=== PATIENT | female | born 1945 | race Caucasian/White ===

== ENCOUNTER → 2017-09-13 12:14 | Outpatient (CLI) | payer MEDICARE, SELFPAY ==
--- NOTE | 2017-09-13 12:18 | XR_ITS ---
XR elbow RT min 3V HISTORY: Radial head fracture, pain ITS.REASON: RT RADIAL HEAD FX ORDERING PHYSICIAN: David Huffman MD PATIENT AGE: 71 years COMPARISON: None FINDINGS: No previous exams are available for comparison. There is a faint radiolucency through the central aspect of the radial head consistent with a nondisplaced fracture. There is a positive anterior and posterior fat pad consistent with hemarthrosis. IMPRESSION: Nondisplaced radial head fracture with hemarthrosis
== END ==
PROVIDERS: PCP Family Medicine; Visit Provider Family Medicine
DX: S52.121A Displaced fracture of head of right radius, initial encounter for closed fracture (principal)
CPT/HCPCS: 73080

== ENCOUNTER → 2017-09-16 11:11 | Outpatient (CLI) | payer MEDICARE, SELFPAY ==
--- NOTE | 2017-09-16 11:14 | XR_ITS ---
XR elbow RT min 3V COMPARISON: Right elbow 09/13/2017 HISTORY: Follow-up radial head fracture TECHNIQUE: AP and lateral views FINDINGS: The posterior fat pad sign has resolved. The subtle nondisplaced radial head fracture is again noted. The olecranon fossa appears normal and the supracondylar humerus is normal. IMPRESSION: Stable radial head fracture, interval resolution of hemarthrosis
== END ==
PROVIDERS: PCP Family Medicine; Visit Provider Orthopaedic Surgery
DX: S42.401A Unspecified fracture of lower end of right humerus, initial encounter for closed fracture (principal)
CPT/HCPCS: 73080

== ENCOUNTER → 2017-09-24 08:55 | Outpatient (CLI) | payer MEDICARE, SELFPAY ==
--- NOTE | 2017-09-24 08:58 | XR_ITS ---
XR elbow RT min 3V COMPARISON: Right elbow 09/16/2017 HISTORY: Follow-up recent radial head fracture TECHNIQUE: AP lateral and oblique views FINDINGS: The subtle radial head fracture is again seen with a small step off in the cortex of the radial head. There has been resolution of the hemarthrosis seen on the original film of the 09/13/2017. The olecranon fossa and supracondylar humerus appears normal. IMPRESSION: Stable rather subtle radial head fracture
== END ==
PROVIDERS: PCP Family Medicine; Visit Provider Orthopaedic Surgery
DX: S52.121A Displaced fracture of head of right radius, initial encounter for closed fracture (principal)
CPT/HCPCS: 73080

== ENCOUNTER → 2017-10-03 08:41 | Outpatient (CLI) | payer MEDICARE, SELFPAY ==
--- NOTE | 2017-10-03 08:43 | XR_ITS ---
XR elbow RT min 3V HISTORY: Follow-up fracture ITS.REASON: RT radial head fracture ORDERING PHYSICIAN: Brady Castañeda MD PATIENT AGE: 71 years COMPARISON: 09/24/2017 FINDINGS: Previously noted radial head fracture is slightly more apparent consistent with bony resorption from the underlying fracture site. Displaced fat pad once again noted. A faint calcification is present along the anterior distal aspect of the humerus nonspecific IMPRESSION: Nondisplaced radial head fracture slightly more apparent likely related to bony resorption from hyperemia. Overall no significant change. Persistent hemarthrosis
== END ==
PROVIDERS: PCP Family Medicine; Visit Provider Orthopaedic Surgery
DX: S52.121A Displaced fracture of head of right radius, initial encounter for closed fracture (principal)
CPT/HCPCS: 73080

== ENCOUNTER 2017-10-29 13:00 | Outpatient (RCR) | payer MEDICARE, SELFPAY ==
--- NOTE | 2017-09-24 09:51 | HMH.OTOPEV ---
OT Inpatient Evaluation Rehab OT Outpatient Eval Start: 09/24/17 08:34 Freq: Status: Active Protocol: Document 09/24/17 08:35 TFRY (Rec: 09/24/17 09:02 TFRY [id number]) Electronically Signed By Helena Hardy, OT 09/24/17 08:35 Outpatient Therapy Subjective History Subjective History THIS IS A 71 YEAR OLD FEMALE RIGHT HANDED FEMALE REFERRED TO OCCUPATIONAL THERAPY PATIENT SUSTAINED A RIGHT EDWIN 1 RADIAL HEAD FX. PATIENT STATES SHE FELL ON 01/2018. SHE WENT TO ER AND THEN SAW DR. OROZCO ON September. Chief Complaint Pain Stiff Symptom Type Dull Symptoms Relieved By Rest/Positioning Symptoms Aggravated By Physical Activity Prior Functional Limitations None Current Functional Limitations Lifting Housework Dressing Recreation Activity Symptom Description Activity Dependent Level of pain today (0-10) 0 Pain scale - at its best (0-10) 0 Pain scale - at its worst (0-10) 3 Shoulder/Elbow Eval Shoulder Objective Measurements Elbow Objective Measurements Palpation Tenderness Elbow Palpation Finding Tenderness Elbow ROM Right decreased ROM elbow exam standard right pain with active ROM elbow exam standard right pain with passive ROM elbow exam right standard Elbow Extension Active Range of Motion ( 0 degrees) Elbow Extension Passive Range of Motion 0 (degrees) Elbow Flexion Active Range of Motion ( 130 degrees) Elbow Flexion Passive Range of Motion ( 142 degrees) Elbow Pronation of Forearm Range of WFL Motion (degrees) Elbow Supination of Forearm Range of 180 Motion (degrees) Elbow Supination of Forearm Range of WFL Motion (degrees) Elbow ROM Limitations Pain Elbow MMT Elbow/Forearm Strength Reason Not Orthopedic Precautions Measured OT Outpatient Assessment Impairments Problems/Impairments Impaired Range of Motion Impaired Strength Impaired Lifting Impaired Dressing Impaired Household Care Impaired Recreational Activities Subjective C/O Pain Prognosis Rehab Potential
== END 2017-10-29 13:01 | disposition home or self-care (01) ==
LOC: OT 13:00
PROVIDERS: Family Provider Family Medicine; PCP Family Medicine; Visit Provider Orthopaedic Surgery
DX: S52.121A Displaced fracture of head of right radius, initial encounter for closed fracture (principal)
CPT/HCPCS: 97014; 97110; 97140; 97165; G0283

== ENCOUNTER → 2017-11-05 09:16 | Outpatient (CLI) | payer MEDICARE, SELFPAY ==
--- NOTE | 2017-11-05 09:21 | XR_ITS ---
XR elbow RT min 3V HISTORY: Follow-up fracture ITS.REASON: RT Radial Head Fx ORDERING PHYSICIAN: Brady Castañeda MD PATIENT AGE: 71 years COMPARISON: 10/03/2017 FINDINGS: Mildly depressed radial head fracture is once again noted. Fracture line is still visible. Fracture has both a longitudinal and transverse component. Fracture lines are somewhat more visible than when compared to the previous exam. There is some sclerosis along the lateral aspect of the radial head. Developing avascular process is a consideration. IMPRESSION: Mildly depressed radial head fracture. The depression is slightly more apparent as are the fracture lines. There is some increased density along the lateral aspect of the radial head and may be related to overlap from the depressed fragment versus developing avascular necrosis
== END ==
PROVIDERS: PCP Family Medicine; Visit Provider Orthopaedic Surgery
DX: S52.121A Displaced fracture of head of right radius, initial encounter for closed fracture (principal)
CPT/HCPCS: 73080

== ENCOUNTER → 2018-02-17 09:02 | Outpatient (CLI) | payer MEDICARE, SELFPAY ==
[2018-02-18 09:08] LABS: Adenovirus F 40/41, stool Not Detected (NotDetected); Astrovirus Not Detected (NotDetected); Campylobacter Not Detected (NotDetected); Clostridium Difficile A/B, PCR Not Detected (NotDetected); Cryptosporidium Not Detected (NotDetected); Cyclospora Cayetanesis Not Detected (NotDetected); Entamoeba histolytica Not Detected (NotDetected); Enteroaggregative E coli Not Detected (NotDetected); Enteropathogenic E coli Not Detected (NotDetected); Enterotoxigenic E coli Not Detected (NotDetected); Giardia lamblia Not Detected (NotDetected); Norovirus Not Detected (NotDetected); Plesimonas Shigalloides, PCR Not Detected (NotDetected); Rotavirus A Not Detected (NotDetected); Salmonella, PCR Not Detected (NotDetected); Sapovirus Not Detected (NotDetected); Shiga-like toxin E coli Not Detected (NotDetected); Shigella Enterovasive E coli Not Detected (NotDetected); Vibrio Cholerae Not Detected (NotDetected); Vibrio, PCR Not Detected (NotDetected); Yersinia Entercolitica, PCR Not Detected (NotDetected)
[2018-02-18 09:46] LABS: Occult Blood,Stool Negative (Negative)
== END ==
PROVIDERS: Visit Provider Family Medicine
DX: R19.7 Diarrhea, unspecified (principal)
CPT/HCPCS: 82272; 87507; G0328

== ENCOUNTER → 2018-02-27 10:04 | Outpatient (CLI) | payer MEDICARE, SELFPAY ==
--- NOTE | 2018-02-27 10:07 | MM_ITS ---
MM Dig screening mamm BI w/CAD CAD Screening COMPARISON: Digital mammograms with CAD 02/02/2016 and 02/04/2017 INDICATION: There is no personal or family history of breast cancer TECHNIQUE: Standard CC and MLO images were obtained. R2 CAD reviewed. FINDINGS: Scattered fibroglandular densities are seen throughout both breasts. There are benign-appearing macrocalcifications right breast. There is no suspicious lesion and there are no suspicious microcalcifications. IMPRESSION: Fibrofatty parenchyma with no suspicious lesion seen BI-RADS Category: 2 Benign Finding(s) RECOMMENDED FOLLOW-UP: 1YR - 1 YEAR FOLLOW-UP (A letter has been sent to the patient regarding results of the study.)
== END ==
PROVIDERS: PCP Family Medicine; Visit Provider Family Medicine
DX: Z12.31 Encounter for screening mammogram for malignant neoplasm of breast (principal)
CPT/HCPCS: 77067

== ENCOUNTER → 2018-03-03 14:02 | Outpatient (POV) | payer MEDICARE, SELFPAY | PROVIDERS: Visit Provider Nurse Practitioner Acute Care | DX: Z00.00 Encounter for general adult medical examination without abnormal findings (principal) ==

== ENCOUNTER → 2018-07-21 09:16 | Outpatient (CLI) | payer MEDICARE, SELFPAY ==
--- NOTE | 2018-07-21 09:20 | XR_ITS ---
XR DEXA axial skeleton HISTORY: ITS.REASON: OSTEOPENIA ORDERING PHYSICIAN: David Huffman MD PATIENT AGE: 72 years COMPARISON: 07/02/2016 FINDINGS: The BMD measured at the AP Spine L1-L4 is 0.946 g/cm squared with a T score of -1.9. This is considered Osteopenic according to the World Health Organization criteria. Fracture risk is Moderate. Treatment is advised. Main hip density has a T score of -1.7. The hip density has increased by 1.6%. The lumbar spine density is not significant change. IMPRESSION: Osteopenia with marked fracture risk. Treatment is advised. Recommend follow-up exam in July 2020
== END ==
PROVIDERS: PCP Family Medicine; Visit Provider Family Medicine
DX: M85.89 Other specified disorders of bone density and structure, multiple sites (principal)
CPT/HCPCS: 77080

== ENCOUNTER 2019-03-03 13:22 | Outpatient (CLI) | payer MEDICARE, SELFPAY ==
--- NOTE | 2019-03-03 13:23 | MM_ITS ---
PROCEDURE: MM DIG SCREENING MAMM BI W/CAD Patient Age:73Y CLINICAL INDICATION: SCREENING 73-year-old, no hormones. No new complaints. Noncontributory family history COMPARISON: [facility] DIGITAL MAMM-SCREEN BILATERAL from 06/03/2012 [facility] DIG MAMM-BILATERAL ADD VIEWS from 06/26/2012 [facility] DIG MAMM-DX TASHA from 12/03/2012 [facility] DIG MAMM-SCREEN TASHA from 12/09/2013 [facility] DIG MAMM-SCREEN TASHA from 01/07/2015 [facility] DIG MAMM-SCREEN TASHA from 02/02/2016 [facility] DIG MAMM-SCREEN TASHA W/CAD from 02/04/2017 [facility] MM Dig screening mamm BI w/CAD from 02/27/2018 TECHNIQUE: Standard CC and MLO images were obtained. R2 CAD reviewed. FINDINGS: Moderate breast density mildly heterogeneous with mild asymmetry similar the to previous studies. No new dominant or suspicious mass. No new suspicious calcifications IMPRESSION: Stable bilateral Bilateral mammogram with no new areas of concern Bilateral follow-up 1 year recommended BI-RAD Category: 1 Negative FOLLOW-UP: 1YR 1 Year Follow-up (A letter has been sent to the patient regarding results of the study.) Dictated by: Wayne Shah MD 03/05/2019 22:10 Electronically signed by Wayne Shah MD in [place] 03/05/2019 22:10
[2019-03-03 14:25] VITALS: BP 171/77; PULSE 59; RESP 18; O2SAT 100
== END 2019-03-03 14:25 | disposition home or self-care (01) ==
LOC: INF 13:22
PROVIDERS: PCP Family Medicine; Visit Provider Family Medicine
DX: Z12.31 Encounter for screening mammogram for malignant neoplasm of breast (principal); M81.0 Age-related osteoporosis without current pathological fracture
CPT/HCPCS: 77067; 96372; J0897

== ENCOUNTER 2019-09-02 08:45 | Outpatient (CLI) | payer MEDICARE, SELFPAY ==
[2019-09-02 09:00] VITALS: BP 127/64; PULSE 63; RESP 18; TEMP 37.2
== END 2019-09-02 09:10 | disposition home or self-care (01) ==
LOC: INF 08:49
PROVIDERS: Visit Provider Family Medicine
DX: M81.0 Age-related osteoporosis without current pathological fracture (principal)
CPT/HCPCS: 96372; J0897

== ENCOUNTER → 2019-09-04 10:13 | Outpatient (CLI) | payer MEDICARE, SELFPAY ==
[2019-09-04 13:24] LABS: Coronavirus 19 IgG Antibody Negative (Negative); Coronavirus 19 IgM Antibody Negative (Negative)
== END ==
PROVIDERS: PCP Family Medicine; Visit Provider Internal Medicine Gastroenterology
DX: Z01.818 Encounter for other preprocedural examination (principal)
CPT/HCPCS: 36415; 86328

== ENCOUNTER 2019-09-07 08:29 | Day surgery (SDC) | payer MEDICARE, SELFPAY ==
[2019-09-01 09:43] VITALS: BMI 22.3
--- NOTE | 2019-09-02 10:46 | SUR.PREOP ---
09/02/2019 @ 6811--PHONE CALL MADE TO PATIENT. PATIENT UNDERSTANDS THAT LAB WORK AND COVID TESTING NEEDS TO BE COMPLETED @ 1000 ON 09/04/2019. PATIENT UNDERSTANDS IF LAB WORK AND COVID-19 TESTS ARE NOT COMPLETED BY 12PM ON THAT DATE, THE SURGERY SCHEDULED WILL BE CANCELLED AND RESCHEDULED FOR ANOTHER TIME.
[2019-09-07] VITALS (7 sets, daily range): BP systolic 94–158; BP diastolic 40–77; PULSE 57–64; RESP 12–18; TEMP 36.3–36.8; O2SAT 96–100
--- NOTE | 2019-09-07 08:57 | HMH.ANESCL ---
[facility] Anesthesia Checklist - Patient Identification Patient Identification: Arm Band - Structural Data Admitted From: Home Planned Operative Procedure/s: colonoscopy Consent for Planned Operative Procedure(s) Verified: Yes Verified Documents: Surgical Consent, History and Physical - NPO Status Verified Time NPO: 00:00 - Additional verifications Anesthesia Reactions: No - Airway Assessment C-Spine Mobility Assessed: Yes (mp2) TMJ Mobility Assessed: Yes Dentition: Good Dentition - Neurological Assessment Level of Consciousness: Awake, Alert - Anesthesia Plan Anesthesia Risk discussed: Yes Anesthesia Plan: Verified ASA Class: II Anesthesia Type: MAC [facility] History I have reviewed the patient's past medical history: Yes Medical History: Reports:: Hyperlipidemia, Hypertension Denies:: Cancer, Diabetes Mellitus Type 1, Diabetes Mellitus Type 2, Internal Pacemaker, MRSA, Seizures *Have you ever received a pneumonia vaccine?: Yes *Have you received a flu vaccine this season?: Yes Other Medical History: Reports: Cataracts Anesthesia experience/problems:: nac Other Surgeries: Yes: Colonoscopy, Hysterectomy-Total. No: Pacemaker Amputation: No Fractures: Yes - *Social History Smoking Status: Never smoker Alcohol Intake: current Alcohol Intake Frequency:: a few times a month Substance Use Type: denies use *Occupational Status:: retired Housing: house Household Members: spouse *Travel in the last 8 weeks: Inside the [place] Family Hx:: Cancer, Heart Attack
--- NOTE | 2019-09-07 09:38 | P.PCN_ITS ---
[facility] Procedure Note Procedure Note:: Colonoscopy Procedure Report: Colonoscopy with cold biopsies Endoscopist: Alexx Akins II, MD Referring physician: Tristen Huffman MD Date of Procedure: September 07, 2019 Equipment: Olympus 180 variable stiffness pediatric colonoscope Sedation: MAC sedation Indication: Mrs. Smith is a 73-year-old female who is here for follow-up screening/surveillance colonoscopy. Her last colonoscopy was 10 years ago (Dr. Andre Cain) and was normal. The patient does get intermittent postprandial bowel urgency and episodic diarrhea. She does have to know where the bathroom is when she goes outside of the home. The patient reports no rectal bleeding, abdominal pain, weight loss or family history of colon cancer. This is her third colonoscopy. Procedure: Prior to the procedure, a history and physical exam was performed, and patient's medications and allergies were reviewed. The risks, benefits and alternatives of the sedation and procedure were discussed with the patient. All questions were answered and informed consent was obtained. The patient was brought to the procedure room. Patient identification and proposed procedure were verified by the physician and the nurse. The patient was placed in a left lateral decubitus position and the scope was passed under direct vision. Throughout the procedure, the patient's blood pressure, pulse, and oxygen saturations were monitored continuously. The colonoscopy was accomplished without difficulty. The patient tolerated the procedure well. Findings: On digital rectal examination there was normal rectal tone. There were no external hemorrhoids. The colonoscope was introduced through the anal canal to the rectum and advanced to the cecum. The ileocecal valve and appendiceal orifice were identified. The scope was advanced a short distance into the ileum which appeared grossly normal. The scope was then withdrawn into the colon. The cecum, ascending, transverse, descending, sigmoid and rectum were grossly normal. Cold biopsies were taken from the right colon to rule out microscopic colitis. There were no mucosal abnormalities identified. Upon retroflexion within the rectum there were grade 1 internal hemorrhoids.The preparation was excellent throughout with Trumbull Preparation Score of 9. The cecal time was 10 minutes. Impression: 1. Normal colonoscopy with intubation of the terminal ileum 2. Grade 1 internal hemorrhoids Plan: I do not feel that the patient will require any further preventive/surveillance colonoscopy. I will follow-up the biopsies to rule out microscopic colitis. She does get intermittent bowel control issues and we will discuss whether further measures are warranted.
== END 2019-09-07 10:27 | disposition home or self-care (01) ==
LOC: OUTP 08:31
PROVIDERS: PCP Family Medicine; Visit Provider Internal Medicine Gastroenterology
PROC: 0DJD8ZZ Inspection of Lower Intestinal Tract, Via Natural or Artificial Opening Endoscopic (ICD-10-PCS; CPT 45378; principal; 2019-09-07 09:30)
DX: Z12.11 Encounter for screening for malignant neoplasm of colon (principal); K64.0 First degree hemorrhoids; I10 Essential (primary) hypertension; E78.5 Hyperlipidemia, unspecified; Z90.710 Acquired absence of both cervix and uterus; Z82.49 Family history of ischemic heart disease and other diseases of the circulatory system; Z79.82 Long term (current) use of aspirin; Z79.899 Other long term (current) drug therapy
CPT/HCPCS: 45380; 88305

== ENCOUNTER 2020-03-07 08:48 | Outpatient (CLI) | payer MEDICARE, SELFPAY ==
[2020-03-07 09:05] VITALS: BP 136/75; PULSE 61; RESP 18; TEMP 36.8; O2SAT 99
--- NOTE | 2020-03-07 09:22 | MM_ITS ---
PROCEDURE: MM DIG SCREENING MAMM BI W/CAD Digital Breast Tomosynthesis Included CLINICAL INDICATION: SCREENING There is no personal or family history of breast cancer. COMPARISON: MG [facility] DIG MAMM-SCREEN TASHA W/CAD from 02/04/2017 MG [facility] MM Dig screening mamm BI w/CAD from 02/27/2018 MG MM DIG SCREENING MAMM BI W/CAD from 03/03/2019 TECHNIQUE: Standard CC and MLO images and 3D Tomosynthesis was obtained. R2 CAD reviewed. FINDINGS: Moderate diffuse fibroglandular densities are seen in the central portions of both breasts. There are stable benign-appearing microcalcifications central portion right breast. There is minimal faint arterial calcification in each breast. There is no new or suspicious lesion in either breast and no suspicious microcalcifications. IMPRESSION: Moderate breast density with no suspicious lesions seen BI-RAD Category: 2 Benign Finding(s) FOLLOW-UP: 1YR 1 Year Follow-up (A letter has been sent to the patient regarding results of the study.) Dictated by: Dr. Nazario Dawn MD 03/12/2020 09:22 Dr. Nazario Dawn MD in [place] 03/12/2020 09:22
[2020-03-07 09:25] VITALS: BP 132/71; PULSE 64; RESP 18; TEMP 36.8; O2SAT 99
== END 2020-03-07 09:25 | disposition home or self-care (01) ==
PROVIDERS: PCP Family Medicine; Visit Provider Family Medicine
DX: Z12.31 Encounter for screening mammogram for malignant neoplasm of breast (principal); M81.0 Age-related osteoporosis without current pathological fracture
CPT/HCPCS: 77063; 77067; 96372; J0897

== ENCOUNTER 2020-09-05 08:31 | Outpatient (CLI) | payer MEDICARE, SELFPAY ==
--- NOTE | 2020-09-05 08:35 | XR_ITS ---
PROCEDURE: XR DEXA AXIAL SKELETON CLINICAL HISTORY: POST-MENOPAUSAL COMPARISON: CR DEXAAX XR DEXA axial skeleton from 07/21/2018 FINDINGS: The right hip BMD is 0.688 with a T-score of -1.5. The left hip BMD is 0.686 with a T-score of -1.5. The lumbar spine BMD is 0.833 with a T-score of -1.9. IMPRESSION: This patient is considered osteopenic according to the World Health Organization criteria. Bone density is between 10 and 25 percent below young normal. Fracture risk is moderate. Treatment is advised. Based on these results a follow-up exam is recommended in 2 year. Dictated by: Bob Fried MD 09/05/2020 20:28 Bob Fried MD in [place] 09/06/2020 08:15
[2020-09-05 09:08] VITALS: BP 157/71; PULSE 58; RESP 17; TEMP 36.4; O2SAT 100
== END 2020-09-05 09:08 | disposition home or self-care (01) ==
PROVIDERS: PCP Family Medicine; Visit Provider Family Medicine
DX: Z13.820 Encounter for screening for osteoporosis (principal); Z78.0 Asymptomatic menopausal state; M85.89 Other specified disorders of bone density and structure, multiple sites
CPT/HCPCS: 77080; 96372; J0897

== ENCOUNTER 2021-03-08 07:33 | Outpatient (CLI) | payer MEDICARE, SELFPAY ==
--- NOTE | 2021-03-08 07:36 | MM_ITS ---
PROCEDURE INFORMATION: Exam: MG Bilateral Screening 3D Mammography Exam date and time: 03/08/2021 7:36 AM Age: 75 years old Clinical indication: Encounter for screening mammogram for malignant neoplasm of breast TECHNIQUE: Imaging protocol: Bilateral screening tomosynthesis and 2D mammography including computer-aided detection (CAD) when performed. COMPARISON: 1. MG MM DIG SCREENING MAMM BI W/CAD 03/07/2020 9:48 AM 2. MG MM DIG SCREENING MAMM BI W/CAD 03/03/2019 1:51 PM 3. MG [facility] MM Dig screening mamm BI w/CAD 02/27/2018 10:38 AM FINDINGS: MAMMOGRAPHY: Breast composition: The breasts are heterogeneously dense, which may obscure small masses. Mass: No suspicious masses. Architectural distortion: No suspicious distortion. Calcifications: No suspicious calcifications. Asymmetric density: None. Skin thickening: None. Axillary adenopathy: None. IMPRESSION: No mammographic evidence of malignancy. Annual screening is recommended unless otherwise clinically indicated. ASSESSMENT: BI-RADS Category 1: Negative
[2021-03-08 08:40] VITALS: BP 135/83; PULSE 57; RESP 16; TEMP 36.3; O2SAT 99
== END 2021-03-08 08:50 | disposition home or self-care (01) ==
LOC: RAD 08:28 → INF 08:35
PROVIDERS: PCP Family Medicine; Visit Provider Family Medicine
DX: Z12.31 Encounter for screening mammogram for malignant neoplasm of breast (principal); M81.0 Age-related osteoporosis without current pathological fracture
CPT/HCPCS: 77063; 77067; 96372; J0897

== ENCOUNTER 2021-09-05 08:36 | Outpatient (CLI) | payer MEDICARE, SELFPAY ==
[2021-09-05 08:49] VITALS: BP 149/69; PULSE 62; RESP 18; TEMP 36.4; O2SAT 99
== END 2021-09-05 08:58 | disposition home or self-care (01) ==
LOC: INF 08:37
PROVIDERS: PCP Family Medicine; Visit Provider Family Medicine
DX: M85.89 Other specified disorders of bone density and structure, multiple sites (principal)
CPT/HCPCS: 96372; J0897

== ENCOUNTER → 2021-11-28 15:53 | Outpatient (CLI) | payer MEDICARE, SELFPAY ==
[2021-11-28 16:49] LABS: Basophils # 0.1 K/mm3 (0-0.2); Basophils % 0.5 % (0.1-2.0); Eosinophils # 0.2 K/mm3 (0.0-0.4); Eosinophils % 1.5 % (0.1-12.0); Hematocrit 40.8 % (37.0-47.0); Hemoglobin 13.8 g/dL (12.2-16.2); Lymphocytes # 1.4 K/mm3 (0.7-4.5); Lymphocytes % 11.4 % (10-50); Mean Corpuscular HGB Conc 33.8 g/dL (31.8-35.4); Mean Corpuscular Hemoglobin 30.8 pg (27.0-31.2); Mean Corpuscular Volume 91.1 fl (81-99); Mean Platelet Volume 8.2 fl (7.4-10.4); Monocytes # 0.6 K/mm3 (0.1-1.0); Monocytes % 4.7 % (1.7-9.3); Neutrophils # 10.1 K/mm3 (1.8-7.8); Neutrophils % 81.9 % (37.0-80.0); Platelet Count 194 K/mm3 (142-424); Red Blood Count 4.47 M/mm3 (4.20-5.40); Red Cell Distribution Width 13.9 % (11.5-17.5); White Blood Count 12.4 K/mm3 (4.8-10.8)
== END ==
PROVIDERS: PCP Family Medicine; Visit Provider Family Medicine
DX: Z20.822 Contact with and (suspected) exposure to COVID-19 (principal)
CPT/HCPCS: 36415; 85025; 87275; 87276; C9803; U0003; U0005

== ENCOUNTER → 2022-03-08 08:35 | Outpatient (CLI) | payer MEDICARE, SELFPAY | PROVIDERS: PCP Family Medicine; Visit Provider Family Medicine | DX: M85.80 Other specified disorders of bone density and structure, unspecified site (principal) ==

== ENCOUNTER → 2022-03-09 09:41 | Outpatient (CLI) | payer MEDICARE, SELFPAY ==
--- NOTE | 2022-03-09 09:45 | MM_ITS ---
PROCEDURE INFORMATION: Exam: MG Bilateral Screening 3D Mammography Exam date and time: 03/09/2022 9:49 AM Age: 76 years old Clinical indication: Screening. No family history of breast cancer. TECHNIQUE: Imaging protocol: Bilateral Screening tomosynthesis and 2D mammography including computer-aided detection (CAD) when performed. COMPARISON: 1. MG MM DIG SCREENING MAMM BI W/CAD 03/08/2021 7:59 AM 2. MG MM DIG SCREENING MAMM BI W/CAD 03/07/2020 9:48 AM 3. MG MM DIG SCREENING MAMM BI W/CAD 03/03/2019 1:51 PM 4. MG [facility] MM Dig screening mamm BI w/CAD 02/27/2018 10:38 AM FINDINGS: MAMMOGRAPHY: Breast composition: The breasts are heterogeneously dense, which may obscure small masses. Mass: None. Architectural distortion: None. Calcifications: No suspicious calcifications. Asymmetric density: None. Skin thickening: None. Axillary adenopathy: None. IMPRESSION: No mammographic evidence of malignancy. Annual screening is recommended unless otherwise clinically indicated. ASSESSMENT: BI-RADS Category 1: Negative
== END ==
PROVIDERS: PCP Family Medicine; Visit Provider Family Medicine
DX: Z12.31 Encounter for screening mammogram for malignant neoplasm of breast (principal)
CPT/HCPCS: 77063; 77067

== ENCOUNTER → 2022-09-05 08:58 | Outpatient (CLI) | payer MEDICARE, SELFPAY ==
--- NOTE | 2022-09-05 09:01 | XR_ITS ---
FINAL REPORT CLINICAL HISTORY: Osteoporosis screening COMPARISON: None FINDINGS: Using L1-4, the bone mineral density of the spine is 0.929 g/cm2, corresponding to T-score of -1.1 which is in the low bone density range. Using the left hip, the bone mineral density of the femoral neck is 0.650 g/cm2, corresponding to a T-score of -1.8 which is in the low bone density range. Using the right hip, the bone mineral density of the femoral neck is 0.720 g/cm2, corresponding to a T-score of -1.2 which is in the low bone density range. FRAX not reported because patient is being treated for osteoporosis. NOTE: T-score: Standard deviation compared with peak bone mass of young adult mean. *Following the recommendations of the International Society of Bone densitometry, classification of hip BMD is based on the lower of two T-scores; total hip or femoral neck. IMPRESSION: Diminished bone mineral density consistent with osteopenia. Reviewed, Interpreted and Dictated by Balaji Arboleda III, MD Transcribed by Coreen Benito Authenticated and [facility]
== END ==
PROVIDERS: PCP Family Medicine; Visit Provider Family Medicine
DX: M85.89 Other specified disorders of bone density and structure, multiple sites (principal); Z78.0 Asymptomatic menopausal state
CPT/HCPCS: 77080

== ENCOUNTER → 2023-01-10 09:37 | Outpatient (CLI) | payer MEDICARE, SELFPAY ==
--- NOTE | 2023-01-10 09:42 | XR_ITS ---
FINAL REPORT CLINICAL HISTORY: Left ankle pain COMPARISON: None FINDINGS: AP, oblique, and lateral views of the left ankle were obtained. There is no prior exam for comparison. There is a nondisplaced fracture at the tip of the lateral malleolus. No other fracture is seen. The ankle mortise is intact. There is mild lateral soft tissue edema. IMPRESSION: Nondisplaced fracture tip of the lateral malleolus with mild lateral soft tissue edema. Reviewed, Interpreted and Dictated by Mally Perez MD Transcribed by Coreen Benito Authenticated and [facility]
== END ==
PROVIDERS: PCP Family Medicine; Visit Provider Orthopaedic Surgery
DX: M25.572 Pain in left ankle and joints of left foot (principal)
CPT/HCPCS: 73610

== ENCOUNTER 2023-03-11 10:54 | Outpatient (CLI) | payer MEDICARE, SELFPAY ==
--- NOTE | 2023-03-11 10:58 | MM_ITS ---
PROCEDURE INFORMATION: Exam: MG Bilateral Screening 3D Mammography Exam date and time: 03/11/2023 10:55 AM Age: 77 years old Clinical indication: Screening. No family history of breast cancer. TECHNIQUE: Imaging protocol: Bilateral Screening tomosynthesis and 2D mammography including computer-aided detection (CAD) when performed. COMPARISON: 1. MG MM DIG SCREENING MAMM BI W/CAD 03/09/2022 9:49 AM 2. MG MM DIG SCREENING MAMM BI W/CAD 03/08/2021 7:59 AM 3. MG MM DIG SCREENING MAMM BI W/CAD 03/07/2020 9:48 AM 4. MG MM DIG SCREENING MAMM BI W/CAD 03/03/2019 1:51 PM FINDINGS: MAMMOGRAPHY: Breast composition: The breasts are heterogeneously dense, which may obscure small masses. Mass: None. Architectural distortion: None. Calcifications: No suspicious calcifications. Asymmetric density: None. Skin thickening: None. Axillary adenopathy: None. IMPRESSION: No mammographic evidence of malignancy. Annual screening is recommended unless otherwise clinically indicated. ASSESSMENT: BI-RADS Category 1: Negative
== END 2023-03-11 23:59 ==
LOC: RAD 10:54
PROVIDERS: PCP Family Medicine; Visit Provider Family Medicine
DX: Z12.31 Encounter for screening mammogram for malignant neoplasm of breast (principal)
CPT/HCPCS: 77063; 77067

== ENCOUNTER 2024-03-12 07:44 | Outpatient (CLI) | payer MEDICARE, SELFPAY ==
--- NOTE | 2024-03-12 07:47 | MM_ITS ---
PROCEDURE INFORMATION: Exam: MG Bilateral Screening 3D Mammography Exam date and time: 03/12/2024 7:44 AM Age: 78 years old Clinical indication: Screening examination TECHNIQUE: Imaging protocol: Bilateral Screening tomosynthesis and 2D mammography including computer-aided detection (CAD) when performed. COMPARISON: 1. MG MM DIG SCREENING MAMM BI W/CAD 03/11/2023 10:55 AM 2. MG MM DIG SCREENING MAMM BI W/CAD 03/09/2022 9:49 AM FINDINGS: MAMMOGRAPHY: Breast composition: The breasts are heterogeneously dense, which may obscure small masses. Mass: No suspicious masses. Architectural distortion: None. Calcifications: No suspicious calcifications. Asymmetric density: None. Skin thickening: None. Axillary adenopathy: None. IMPRESSION: No mammographic evidence of malignancy. Annual screening is recommended unless otherwise clinically indicated. ASSESSMENT: BI-RADS Category 1: Negative.
== END 2024-03-12 23:59 | disposition home or self-care (01) ==
LOC: RAD 07:45
PROVIDERS: PCP Family Medicine; Visit Provider Family Medicine
DX: Z12.31 Encounter for screening mammogram for malignant neoplasm of breast (principal)
CPT/HCPCS: 77063; 77067

== ENCOUNTER 2024-07-09 12:34 | Outpatient (CLI) | payer MEDICARE, SELFPAY | END 2024-07-09 23:59 | disposition home or self-care (01) | LOC: LAB 12:35 | PROVIDERS: PCP Family Medicine; Visit Provider Nurse Practitioner Family | DX: K58.0 Irritable bowel syndrome with diarrhea (principal) ==

== ENCOUNTER 2024-07-10 08:20 | Outpatient (CLI) | payer MEDICARE, SELFPAY ==
[2024-07-13 07:21] LABS: Pancreatic Elastase, Fecal >800 (>200)
== END 2024-07-10 23:59 | disposition home or self-care (01) ==
LOC: LAB 08:21
PROVIDERS: PCP Family Medicine; Visit Provider Nurse Practitioner Family
DX: K58.0 Irritable bowel syndrome with diarrhea (principal)
CPT/HCPCS: 82656

== ENCOUNTER 2024-07-21 14:21 | Outpatient (CLI) | payer MEDICARE, SELFPAY ==
--- NOTE | 2024-07-21 14:25 | CA_ITS ---
APPROVED REPORT EXAM: Comprehensive 2D, Doppler, and color-flow Echocardiogram Concrete Mason: Vernell Vega CRT Ht: 5 ft 1 in Wt: 116lbs BSA: 1.50 BP: 130/90 mmHg Indications: Hyperlipidemia, Hypertension/HDD Echo Enhancing Agent Indication: Rule out Shunt Agent(s) / Amount(s) Used: Agitated Saline 5 cc Comments: Bubble study is negative. M-Mode Dimensions RVDd 3.31 cm (0.9-2.6) LA Diam 3.27 cm (1.9-4.0) LVDd 3.39 cm (3.5-5.7) LVDs 2.48 cm (3.5-5.7) IVSd 1.57 cm (0.6-1.1) PWd 0.75 cm (0.6-1.1) EF (Teich) 53.50% FS 26.80% EDV (Teich) 47.10 mL TAPSE 1.48 (<1.7) ESV (Teich) 21.90 mL LV Diastology E Decel Time 150 (160-240 msec) E/A Ratio 4.20 MED A' 8.80 cm/s LAT A' 7.40 cm/s Aortic Valve AO Peak GR. 8.10 mmHg Mitral Valve MV E Max Dhruv. 119.0 (40-130 cm/s) MV A Velocity 28.0 (40-130 cm/s) E/A Ratio 4.20 MV PHT 44.0 ms Pulmonary Valve PV Peak Velocity 137.0 (50-150 cm/s) Tricuspid Valve TR P. Velocity 271.00 cm/s RAP Estimate 10.00 mmHg RVSP 39.30 mmHg Left Ventricle The left ventricle is normal size. The left ventricular systolic function is normal. The left ventricular ejection fraction is within the normal range. Proximal septal thickening is noted. There is normal LV segmental wall motion. Diastolic function is indeterminate. LVEF is 55%. Right Ventricle The right ventricle is normal size. The right ventricular systolic function is normal. Atria Left atrium is mildly dilated. Right atrium is mildly dilated. There is no Doppler evidence of interatrial shunt. Agitated saline administration demonstrates no evidence of interatrial shunt. Aortic Valve The aortic valve is mildly thickened. Trace aortic regurgitation. There is no aortic valvular stenosis. Mitral Valve The mitral valve is normal in structure. No evidence of mitral valve stenosis. Mild mitral regurgitation. Tricuspid Valve Tricuspid valve is grossly normal in structure and function. Mild tricuspid regurgitation. RVSP is 30-35 mmHg. Pulmonic Valve The pulmonary valve is normal in structure. Trace pulmonic regurgitation. Great Vessels The aortic root is normal in size. IVC is normal in size and collapses >50% with inspiration. Pericardium There is no pericardial effusion. Other Information Study Quality: Fair Conclusion Normal biventricular systolic function. Mild biatrial dilation. Mild MR, mild TR. There is no Doppler evidence of interatrial shunt. Agitated saline administration (bubble study) demonstrates no evidence of interatrial shunt. Electronically signed by : Julia Fierro MD 07/27/2024 22:31:35
== END 2024-07-21 23:59 | disposition home or self-care (01) ==
LOC: RT 14:21
PROVIDERS: PCP Family Medicine; Visit Provider Family Medicine
DX: I10 Essential (primary) hypertension (principal); I08.1 Rheumatic disorders of both mitral and tricuspid valves; E78.5 Hyperlipidemia, unspecified
CPT/HCPCS: 93306

== ENCOUNTER 2024-09-15 11:07 | Outpatient (CLI) | payer MEDICARE, SELFPAY ==
--- OUTSIDE RECORDS SUMMARY | 2024-07-09 11:45 | XMS_ITS ---
Author Organization [facility] Address [address] [place] [id number] Care Team Providers Care Sales Marketing Coordinator Name Role Phone Carlo Huffman Primary Care Provider Allergies No Known Allergies REASON FOR VISIT rapid heart rate Medications Medication SIG (Take, Route, Frequency, Duration) Notes Start Date End Date Status Toprol XL 200 MG 1/2 tab(s) orally Tw o times a day; Duration: 90 days Not-Taking Coreg 12.5 MG 1 tablet with food O rally Twice a day Active amLODIPine Besylate 5 MG TAKE 1 TABLET BY MOUTH EVERY DAY; Duration: 90 Active Atorvastatin Calcium 20 MG 1 tab(s) orally once a day (at bedtime); Duration: 30 day(s) Active Altace 10 MG 1 cap(s) orally twic e a day Active Multivitamin 1 TAB ONCE A DAY Active Calcium + Vitamin D3 600-5 MG-MCG 1 tab(s) orally 2 times a day 08/05/2018 Active Aspir-Low 81 MG 1 tab(s) orally once daily Active Prolia 60 mg/mL INJECT 1 ML SUBCUTANEOUSLY EVERY 6 MONTHS; Duration: 180 Active Vital Signs Blood pressure systolic 120 mm Hg 07/10/19 25 Blood pressure diastolic 82 mm Hg 025 Heart Rate 81 /min 07/09/2024 Height 60.50 in 07/09/2024 Weight 116.8 lbs 07/09/2024 BMI 22.43 kg/m2 07/09/2024 Encounters Encounter Location Date Provider Diagnosis [facility] [address] [facility] [address] [place] [id number] 07/09/2024 Carlo Huffman Tachycardia R00.0 ; Essential hypertension I10 ; Mixed hyperlipidemia E78.2 and BMI 22.0-22.9, adult Z68.22 Assessments Encounter Date Diagnosis (ICD Code) Assessment Notes Treatment Notes Treatment Clinical Notes Section Notes 07/09/2024 Tachycardia (ICD-10 - R00.0) 07/09/2024 Essential hypertension (ICD-10 - I10) 07/09/2024 Mixed hyperlipidemia (ICD-10 - E78.2) 07/09/2024 BMI 22.0-22.9, adult (ICD-10 - Z68.22) Plan Of Treatment Pending Test Test Name Order Date Echocardiogram 07/09/2024 Holter Monitor- 48 hour 07/09/2024 Next Appt Details Follow Up: after tests, Reas on: Provider Name:Carlo Logan hcun, 09/15/2024 10:30:00 AM, [address], [address], [place], [id number], Progress Notes * ISA SMITHDOB: [birth year] (78 yo F)Acc No.[id number]:07/09/2024 Progress Notes Patient: ISA CARRILLO Provider: Carlo Huffman M.D. :1945 A ge:78 Y S ex:Female Date:07/09/2024 Address:[facility] [address] [place], [id number] Subjective: * Chief Complaints: * 1 . Rapid heart rate. * HPI: C ardiology: Isa comes in with concerns about her heart rate. She has been tracking this on her phone for a few months and has had consistently elevated readings in the range of 100-120. She denies palpitations, chest pain, or increased shortness of breath. Blood pressure checks at home have been consistently normal. * ROS: D ERMATOLOGY: no R kailee. n o H lisa. G ASTROENTEROLOGY: no N ausea. n o V omiting. n o D iarrhea.? U ROLOGY: no D ifficulty urinating. n o B lood in urine. * Medical History: H ypertension, Osteopenia, Osteoarthritis, IBS-D -- Dr. Akins, Hyperlipidiemia. * Surgical History: t otal hysterectomy 1996, C-scope/ singh/ Dr. Cain 2011, bilateral eyelid surgery-Dr Dowell 01/2019, C-scope/ Mable/ singh 08/2019. * Hospitalization/Major Diagno stic Procedure: U QS-Fitmlqcbk-SSH 11/15, [place] ER-flu 05/18, [place] ER-fell and fractured right elbow 09/13/17. * Family History: F ather: , melanoma. M other: , CAD - s/p CABG, end stage renal disease on hemodialysis, lung cancer. S iblings: alive. 1 sister(s) - healthy. 1 son(s) , 1 daughter(s) - healthy. . Sister with migraines. * Social History: C URRENT TOBACCO USE S moking Status: Patient does NOT smoke. C affeine: no. Home smoke detector use: yes. Marital Status: . Occupation: Retired book keeper. Past smoking status: no. Alcohol: Type: , Frequency:seldom ,Years: , Determination:. * Medications: T aking Aspir-Low 81 MG Tablet Delayed Release 1 tab(s) orally once daily , Taking Multivitamin 1 TAB ONCE A DAY , Taking Calcium + Vitamin D3 600-5 MG-MCG Tablet 1 tab(s) orally 2 times a day , Taking Prolia 60 mg/mL Solution Prefilled Syringe INJECT 1 ML SUBCUTANEOUSLY EVERY 6 MONTHS , Taking Atorvastatin Calcium 20 MG Tablet 1 tab(s) orally once a day (at bedtime) , Taking Altace 10 MG Capsule 1 cap(s) orally twice a day , Taking Coreg 12.5 MG Tablet 1 tablet with food Orally Twice a day , Taking amLODIPine Besylate 5 MG Tablet TAKE 1 TABLET BY MOUTH EVERY DAY , Not- Taking Toprol XL 200 MG Tablet Extended Release 24 Hour 1/2 tab(s) orally Two times a day , Medication List reviewed and reconciled with the patient * Allergies: N .K.D.A. Objective: * Vitals: W t: 116.8, Temp: 97.6, BP: 120/82, HR: 81, O2 Sat: 98% on RA, Nurse: he, Ht: 60.50, BMI:22.43. * Examination: C ardiology: General Appearance: p leasant, NAD. H eart sounds: R RR, normal S1, S2. M urmur, click , gallop: n one. L ungs: c lear, no rales or wheezes. E xtremities: n o leg edema. Assessment: * Assessment: 1. T achycardia - R00.0 (Primary) 2 . E ssential hypertension - I10 ? 3 . M ixed hyperlipidemia - E78.2 4 . B OH 22.0-22.9, adult - Z68.22 Plan: * Treatment: 2.?Essential hypertension?Imaging: Echocardiogram* Ibeth Heaton 07/10/2024 08:48 :14 AM > no auth required; CPT code 04582; faxed to [facility] Scheduling * Procedure Codes: G 2211 Complex e/m visit add on, 3074F SYST BP LT 130 MM HG, 3079F DIAST BP 80-89 MM HG, G8420 BMI<30 AND >=22 CALC & DOCU * Follow Up: a fter tests * Images: Billing Information: * Visit Code: 31438 Office Visit, Est Pt., Level 3. * Procedure Codes: G2211 Complex e/m visit add on. 3074F SYST BP LT 130 MM HG. 3079F DIAST BP 80-89 MM HG. G8420 BMI<30 AND >=22 CALC & DOCU. * Electronic signature of Carlo Huffman MD on 09/15/2024 at 11:12 AM EDT Sign off status: Pending * Provider: Carlo Huffman M.D. Date: 0 07/09/2024 Generated for Chris judge/Chente/eTlossmitting on: 0 09/15/2024 11:12 AM EDT History and Physical Notes * Examination Category Sub-Category Detail Notes Category Not es Cardiology Lungs: clear, no rales or wheezes Heart sounds: RRR, normal S1, S2 Extremities: no leg edema Murmur, click , gallop: none General Appearance: pleasant, NAD
--- OUTSIDE RECORDS SUMMARY | 2024-09-07 05:20 | XMS_ITS ---
Author Organization [facility] Address [address] [place] [address] [address] [place] [id number] Care Team Providers Care Medical Typist Name Role Phone Carlo Huffman Primary Care Provider REASON FOR VISIT prolia shot Encounters Encounter Location Date Provider Diagnosis [facility] [address] [facility] [address] [facility] [address] [place] [id number] 09/07/2024 Carlo Huffman Age-related osteoporosis without current pathological fracture M81.0 Assessments Encounter Date Diagnosis (ICD Code) Assessment Notes Treatment Notes Treatment Clinical Notes Section Notes 09/07/2024 Age-related osteoporosis without current pathological fracture (ICD-10 - M81.0) Plan Of Treatment Next Appt Details Provider Name:Carlo Isaac, 09/15/2024 10:30:00 AM, [address], [facility] [address], [place], [phone], Medications Administered Medication Instructions Date of Administration Dosage Notes PROLIA 09/07/2024 60 mg Progress Notes * BLAINE SMITHDOB: [birth year] (78 yo F)Acc No.[id number]:09/07/2024 Patient: BLAINE CARRILLO Provider: Carlo Huffman M.D. :1945 A ge:78 Y S ex:Female Date:09/07/2024 Address:[facility] [address], [place], [id number] Subjective: * Chief Complaints: * 1 . Prolia shot. * Medical History: Objective: * Vitals: Assessment: * Assessment: 1. A ge-related osteoporosis without current pathological fracture - M81.0 (Primary) Plan: * Treatment: * Therapeutic Injections: Prolia : 60 mg (Route: Intramuscular) given by VIVIAN Mason on left deltoid * Procedure Codes: 9 6372 ADMINISTRATION OF INJECTION * Images: Billing Information: * Visit Code: * Procedure Codes: 45972 ADMINISTRATION OF INJECTION. * Electronic signature of Carlo Huffman MD on 09/15/2024 at 11:13 AM EDT Sign off status: Pending * Provider: Carlo Huffman M.D. Date: 0 09/07/2024 Generated for Chris judge/Chente/Ezioitting on: 0 09/15/2024 11:13 AM EDT
--- OUTSIDE RECORDS SUMMARY | 2024-09-15 11:12 | XMS_ITS | Patient Health Record ---
Author Organization [facility] Address [address] [place] [phone] Allergies No Known Allergies Reason For Referral No Information Medications Medication SIG (Take, Route, Frequency, Duration) Notes Start Date End Date Status amLODIPine Benzoate 1 MG/ML 5 mL Orally Once a day Active Toprol XL Active Prolia Active Atorvastatin Calcium Active Plan Of Treatment No Information Insurance Providers Payer Name Payer Address Payer Phone Subscriber Number Group Number Insured Name Patient Relationship to Insured Coverage Start Date Coverage End Date [employer] [address] [address] [place] [phone] [id number] BLAINE ELLISON Self - patient is the insured Medical (General) History Medical History History ICD Code Hypertension High cholesterol Osteopenia Surgical History Surgery Date(Month/Year) Hysterectomy
--- OUTSIDE RECORDS SUMMARY | 2024-09-15 11:13 | XMS_ITS | Patient Health Record ---
Author Organization [facility] Address [address] [place] [id number] Care Team Providers Care Chef De Cuisine Name Role Phone Carlo Huffman Primary Care Provider Allergies No Known Allergies Results Component Value Reference Range Notes P-Lipid Panel Reviewed date:09/29/2023 10:58:37 PM Interpretation: Performing Lab: Notes/Report: Test performed by [facility] [address] [place] [address] , [address], [place] [address] Thong Levine MD, General Farmer CLIA: [id number] Cholesterol 142 <200 mg/dL Triglycerides 109 <150 mg/dL HDL Cholesterol 48 >39 mg/dL Cholesterol / HDL Ratio 2.96 0.00-4.44 Ratio Non-HDL Cholesterol 94 <130 mg/dL LDL Cholesterol (Calculation) 72 <130 mg/dL LDL Cholesterol Levels* Less than 100 mg/dL Optimal 100 to 129 mg/dL Near Optimal/ Above Optimal 130 to 159 mg/dL Borderline High 160 to 189 mg/dL High 190 mg/dL and above Very High * Categories as recommended by the 2004 ATPIII guidelines LDL/HDL Ratio 1.5 <3.3 Ratio ____ LDL Cholesterol Patient History ____ Test Date: 08/23/2022 LDL Results: 77 Units: mg/dL % Change: - ---- Test Date: 09/27/2023 LDL Results: 72 Units: mg/dL % Change: -6% ____ P-Comprehensive Metabolic Pa сергей (CMP) Reviewed date:09/29/2023 10:58:37 PM Interpretation: Performing Lab: Notes/Report: Test performed by [facility] [address] [place] [address] , [address], [place] [address] Thong Levine MD, General Farmer CLIA: [id number] Sodium 143 135-145 mmol/L Potassium 4.0 3.5-5.3 mmol/L Chloride 107 97-108 mmol/L CO2 27 22-32 mmol/L Glucose 98 65-99 mg/dL BUN 11 8-23 mg/dL Creatinine 0.92 0.50-1.00 mg/dL Calcium 9.1 8.6-10.4 mg/dL eGFR by Creatinine 64 >59 mL/min/1.73m2 Protein 7.0 6.0-8.3 g/dL Albumin 4.5 3.5-5.3 g/dL Alkaline Phosphatase 84 35-121 IU/L ALT (SGPT) 20 <5-47 IU/L AST (SGOT) 40 <5-40 IU/L Bilirubin, Total 0.5 <0.2-1.2 mg/dL A/G Ratio 1.8 1.1-2.5 mg/dL P-Lipid Panel Reviewed date:09/14/2024 09:46:09 AM Interpretation: Performing Lab: Notes/Report: P-Comprehensive Metabolic Pa сергей (CMP) Reviewed date:09/14/2024 09:46:25 AM Interpretation: Performing Lab: Notes/Report: Mammogram Reviewed date:03/16/2024 11:55:44 AM Interpretation:Negative, annual f/u Performing Lab: Notes/Report: Negative, annual f/u result Negative, annual f/u colonoscopy Reviewed date:09/23/2023 01:31:40 PM Interpretation:Normal, no need for f/u testing Performing Lab: Notes/Report: Normal, no need for f/u testing result: normal repeat study: none Medications Medication SIG (Take, Route, Frequency, Duration) Notes Start Date End Date Status Atorvastatin Calcium 20 MG 1 tab(s) orally once a day (at bedtime); Duration: 30 day(s) Active Carvedilol 12.5 MG TAKE 1 TABLET BY LUIS A TH TWICE DAILY WITH FOOD; Duration: 90 Active Norvasc 5 MG 1 tab(s) orally once daily Active Toprol XL 200 MG 1/2 tab(s) orally Tw o times a day; Duration: 90 days Not-Taking Altace 10 MG 1 cap(s) orally twic e a day Active Coreg 12.5 MG 1 tablet with food O rally Twice a day Active Aspir-Low 81 MG 1 tab(s) orally once daily Active Multivitamin 1 TAB ONCE A DAY Active Calcium + Vitamin D3 600-5 MG-MCG 1 tab(s) orally 2 times a day 08/05/2018 Active Prolia 60 mg/mL INJECT 1 ML SUBCUTANEOUSLY EVERY 6 MONTHS; Duration: 180 Active amLODIPine Besylate 5 MG TAKE 1 TABLET BY MOUTH EVERY DAY; Duration: 90 Active Ramipril 10 MG TAKE 1 CAPSULE BY [facility] TWICE DAILY; Duration: 90 Active Atorvastatin Calcium 20 MG TAKE 1 TABLET BY MOUTH DAILY AT BEDTIME; Duration: 90 Active Immunizations Vaccine Route Administration Date Status Comme nts COVID 19 Pfizer Unknown 04/09/2020 Administered COVID 19 Pfizer Unknown 05/07/2020 Administered COVID 19 Pfizer Unknown 12/08/2020 Administered Fluzone High Dose (65yr and older) IM Intramuscular 11/30/2011 Administered Fluzone High Dose (65yr and older) IM Intramuscular 12/03/2014 Administered Fluzone High Dose (65yr and older) IM Intramuscular 11/29/2015 Administered Fluzone High Dose (65yr and older) IM Intramuscular 11/09/2016 Administered Fluzone High Dose (65yr and older) IM Intramuscular 12/04/2017 Administered Fluzone High Dose (65yr and older) IM Intramuscular 11/24/2018 Administered Fluzone High Dose (65yr and older) IM Intramuscular 11/02/2019 Administered Fluzone High Dose (65yr and older) IM Intramuscular 12/13/2020 Administered Fluzone High Dose (65yr and older) IM Intramuscular 12/11/2021 Administered Fluzone High Dose (65yr and older) IM Intramuscular 12/09/2023 Administered Hepatitis A (adult) Unknown 01/20/2018 Administered Hepatitis A (adult) Unknown 07/21/2018 Administered Hepatitis B (20 and more) Unknown 01/07/2007 Administer ed Hepatitis B (20 and more) Unknown 02/11/2007 Administer ed Hepatitis B (20 and more) Unknown 07/21/2007 Administer ed Hepatitis B (20 and more) Unknown 07/21/2007 Administer ed PNEUMOVAX 23 VACCINE IM Intramuscular 06/25/2016 Administe red Prevnar (PCV13) IM Intramuscular 06/29/2014 Administered Prevnar (PCV20) IM Intramuscular 03/05/2023 Administered Shingrix IM Intramuscular 10/27/2018 Administered Shingrix IM Intramuscular 02/16/2019 Administered Tetanus Tdap-Adacel (over 7yrs) IM Intramuscular 07/02/2016 Administered Varivax Unknown 06/25/2016 Administered xAdministration of injection Unknown 12/19/2015 Administered xFlu shot-36 months and older IM Intramuscular 01/30/2005 Administered xFlu shot-36 months and older IM Intramuscular 11/18/2008 Administered xFlu shot-36 months and older IM Intramuscular 11/13/2010 Administered xFluzone (6mos and older)-trivalent IM Intramuscular 12/09/2009 Administered xFluzone High Dose-private (65yr&older) IM Intramuscular 12/01/2012 Administered xFluzone High Dose-private (65yr&older) IM Intramuscular 12/04/2013 Administered Problems Problem Type SNOMED Code ICD Code Onset Dates Problem Status W/U Status Risk Notes Problem Overactive bladder (605994663) Overactive bladder (N32.81) Active confirmed Problem Essential hypertension (37083184) Essential hypertension (I10) Active confirmed Problem Mixed hyperlipidemia (386931723) Mixed hyperlipidemia (E78.2) Active confirmed Problem Irritable bowel syndrome with diarrhea (727598361) Irritable bowel syndrome with diarrhea (K58.0) Active confirmed Problem Age-related osteoporosis (282218972) Age-related osteoporosis without current pathological fracture (M81.0) Active confirmed Problem Female urinary stress incontinence (01008976) TOMAS (stress urinary incontinence, female) (N39.3) Active confirmed Problem Generalized osteoarthritis (560463234) Generalized osteoarthritis (M15.9) Active confirmed Problem Hyperlipidemia (71562542) Hyperlipidemia, unspecified (E78.5) Active confirmed Problem Irritable bowel syndrome (03002717) Irritable bowel syndrome (K58.9) Active confirmed Problem Dyslipidemia (794969302) Dyslipidemia (E78.5) Active confirmed Problem Allergic rhinitis (21632454) Chronic allergic rhinitis, unspecified seasonality, unspecified trigger (J30.9) Active confirmed Vital Signs Heart Rate 75 /min 09/15/2024 Blood pressure diastolic 80 mm Hg 09/15/2024 Height 60.50 in 09/15/2024 Blood pressure systolic 132 mm Hg 09/15/2024 Weight 115.4 lbs 09/15/2024 BMI 22.16 kg/m2 09/15/2024 Encounters Encounter Location Date Provider Diagnosis [facility] [address] [place] [id number] 09/26/2023 R Tristen Huffamn Adult general medica l examination Z00.00 ; Essential hypertension I10 ; Dyslipidemia E78.5 ; Overactive bladder N32.81 ; Osteopenia M85.80 and BMI 22.0-22.9, adult Z68.22 [facility] [address] [place] [id number] 09/27/2023 Carlo Huffman Essential hypertensi on I10 and Mixed hyperlipidemia E78.2 [facility] [address] [place] [id number] 12/09/2023 Tristen Huffman Encounter for immunization Z23 [facility] [address] [place] [id number] 03/03/2024 R Tristen Huffman Essential hypertensi on I10 ; Mixed hyperlipidemia E78.2 ; Dyslipidemia E78.5 ; Overactive bladder N32.81 ; Osteopenia M85.80 and Irritable bowel syndrome K58.9 [facility] [address] [place] [id number] 03/10/2024 Tristen Huffman Age-related osteopor osis without current pathological fracture M81.0 [facility] [address] [place] [id number] 07/09/2024 Tristen Huffman Tachycardia R00.0 ; Essential hypertension I10 ; Mixed hyperlipidemia E78.2 and BMI 22.0-22.9, adult Z68.22 [facility] [address] [place] [id number] 09/07/2024 Tristen Huffman Age-related osteopor osis without current pathological fracture M81.0 [facility] [address] [place] [id number] 09/15/2024 Tristen Huffman Adult general medica l examination Z00.00 ; Essential hypertension I10 ; Mixed hyperlipidemia E78.2 ; Dyslipidemia E78.5 ; Overactive bladder N32.81 ; Osteopenia M85.80 ; Irritable bowel syndrome K58.9 and Tachycardia R00.0 [facility] [address] [place] [id number] 09/29/2023 R Tristen Huffman [facility] [address] [place] [id number] 02/06/2024 Carlo Huffman Assessments Encounter Date Diagnosis (ICD Code) Assessment Notes Treatment Notes Treatment Clinical Notes Section Notes 09/26/2023 Essential hypertension (ICD-10 - I10) 09/26/2023 Adult general medical examination (ICD-10 - Z00.00) Patient instructed to return to office Annually for Annual Wellness Visits to include annual screenings of Pain assessment, Functional Ability assessment, Cognitive Ability assessment, Fall Risk assessment, Depression screening and Bladder control screening. 12/09/2023 Encounter for immunization (ICD-10 - Z23) 03/03/2024 Essential hypertension (ICD-10 - I10) 03/10/2024 Age-related osteoporosis without current pathological fracture (ICD-10 - M81.0) 07/09/2024 Tachycardia (ICD-10 - R00.0) 07/09/2024 Essential hypertension (ICD-10 - I10) 03/03/2024 Mixed hyperlipidemia (ICD-10 - E78.2) 09/07/2024 Age-related osteoporosis without current pathological fracture (ICD-10 - M81.0) 09/15/2024 Adult general medical examination (ICD-10 - Z00.00) Patient instructed to return to office Annually for Annual Wellness Visits to include annual screenings of Pain assessment, Functional Ability assessment, Cognitive Ability assessment, Fall Risk assessment, Depression screening and Bladder control screening. 03/03/2024 Dyslipidemia (ICD-10 - E78.5) 09/15/2024 Essential hypertension (ICD-10 - I10) 07/09/2024 Mixed hyperlipidemia (ICD-10 - E78.2) 09/27/2023 Essential hypertension (ICD-10 - I10) 09/26/2023 Dyslipidemia (ICD-10 - E78.5) 09/26/2023 Overactive bladder (ICD-10 - N32.81) 09/27/2023 Mixed hyperlipidemia (ICD-10 - E78.2) 07/09/2024 BMI 22.0-22.9, adult (ICD-10 - Z68.22) 03/03/2024 Overactive bladder (ICD-10 - N32.81) 09/15/2024 Mixed hyperlipidemia (ICD-10 - E78.2) 09/15/2024 Dyslipidemia (ICD-10 - E78.5) 03/03/2024 Osteopenia (ICD-10 - M85.80) 09/26/2023 Osteopenia (ICD-10 - M85.80) 09/26/2023 BMI 22.0-22.9, adult (ICD-10 - Z68.22) 09/15/2024 Overactive bladder (ICD-10 - N32.81) 03/03/2024 Irritable bowel syndrome (ICD-10 - K58.9) 09/15/2024 Osteopenia (ICD-10 - M85.80) 09/15/2024 Irritable bowel syndrome (ICD-10 - K58.9) 09/15/2024 Tachycardia (ICD-10 - R00.0) Plan Of Treatment Pending Test Test Name Order Date Bone density 09/15/2024 Echocardiogram 07/09/2024 colonoscopy 03/03/2024 CBC Venipuncture (in house) 09/15/2024 Holter Monitor- 48 hour 09/15/2024 Holter Monitor- 48 hour 07/09/2024 P-Comprehensive Metabolic Panel (CMP) P-Lipid Panel 09/15/2024 P-Microalbumin/Creatinine, Random Urine Sample 09/15/2024 Next Appt Details Provider Name:Carlo Tristen Logan chun, 09/15/2024 10:30:00 AM, [address] [facility] [address] [facility], [address], [place], [place], [id number], Insurance Providers Payer Name Payer Address Payer Phone Subscriber Number Group Number Insured Name Patient Relationship to Insured Coverage Start Date Coverage End Date [employer] (MEDICAR E) [address] [address] [place] [address] [id number] BLAINE GREGORY Self - patient is the insured Medications Administered Medication Instructions Date of Administration Dosage Notes PROLIA 03/09/2022 1 mL PROLIA 09/05/2022 1 mL Right arm PROLIA 03/08/2023 1 mL Right arm PROLIA 09/06/2023 1 mL PROLIA 03/10/2024 1 mL PROLIA 09/07/2024 60 mg Medical (General) History Medical History History ICD Code Hypertension osteopenia Osteoarthritis IBS-D - Dr. Akins Hyperlipidiemia Surgical History Surgery Date(Month/Year) total hysterectomy 1996 C-scope/ singh/ Dr. Cain 2011 bilateral eyelid surgery-Dr Dowell C-scope/ Mable/ singh 08/2019 Hospitalization History Reason Date(Month/Year) [facility]-fell and fractured right el bow 09/13/17 [place] [facility]-flu 05/18 [facility] 11/15
== END 2024-09-15 23:59 | disposition home or self-care (01) ==
LOC: RT 11:08
PROVIDERS: PCP Family Medicine; Visit Provider Family Medicine
DX: I49.3 Ventricular premature depolarization (principal); I49.1 Atrial premature depolarization; R00.0 Tachycardia, unspecified
CPT/HCPCS: 93225; 93227

== ENCOUNTER 2024-10-12 09:06 | Outpatient (CLI) | payer MEDICARE, SELFPAY ==
--- OUTSIDE RECORDS SUMMARY | 2024-07-09 11:45 | XMS_ITS ---
Author Organization [facility] Address [address] [place] [id number] Care Team Providers Care Case Monitor Name Role Phone Carlo Huffman Primary Care Provider [phone] Allergies No Known Allergies REASON FOR VISIT [...] 07/09/2024 Encounters Encounter Location Date Provider Diagnosis [facility] [address] [facility] [address] [place] [id number] 07/09/2024 Carlo Huffman Tachycardia R00.0 ; Essential [...] Details Follow Up: after tests, Reas on: Progress Notes * ISA SMITHDOB: [birth year] (78 yo F)Acc No.[id number]:07/09/2024 Progress Notes Patient: ISA CARRILLO Provider: Carlo Huffman M.D. :1945 A ge:78 Y S ex:Female Date:07/09/2024 Address:[facility] [address] [id number] Subjective: * Chief Complaints: * 1 . [...] 08/2019. * Hospitalization/Major Diagno stic Procedure: U MX-Qgqkrqlgc-HRM 11/15, [place] ER-flu 05/18, [place] ER-fell and fractured right elbow 09/13/17. * [...] ixed hyperlipidemia - E78.2 4 . B HI 22.0-22.9, adult - Z68.22 Plan: * Treatment: 2.?Essential hypertension?Imaging: Echocardiogram* Ibeth Heaton 07/10/2024 08:48 :14 AM > no auth required; CPT code 43199; faxed to [facility] Scheduling * Procedure Codes: G 2211 Complex e/m visit add on, 3074F SYST BP LT 130 MM HG, 3079F DIAST BP 80-89 MM HG, G8420 BMI<30 AND >=22 CALC & DOCU * Follow Up: a fter tests * Images: Billing Information: * Visit Code: 17538 Office Visit, Est Pt., Level 3. * Procedure Codes: G2211 Complex e/m visit add on. 3074F SYST BP LT 130 MM HG. 3079F DIAST BP 80-89 MM HG. G8420 BMI<30 AND >=22 CALC & DOCU. * Electronic signature of Carlo Huffman MD on 10/12/2024 at 09:11 AM EDT Sign off status: Pending * Provider: Carlo Huffman M.D. Date: 0 07/09/2024 Generated for Chris judge/Chente/eTransmitting on: 0 10/12/2024 09:11 AM EDT History and Physical Notes * Examination Category Sub-Category Detail Notes Category Not es Cardiology Lungs: clear, no rales or wheezes Heart sounds: RRR, normal S1, S2 Extremities: no leg edema Murmur, click , gallop: none General Appearance: pleasant, NAD
--- OUTSIDE RECORDS SUMMARY | 2024-09-15 06:30 | XMS_ITS ---
Author Organization [facility] Address [address] [place] [id number] Care Team Providers Care Fourdrinier Wire Weaver Name Role Phone Carlo Huffman Primary Care Provider [phone] Allergies No Known Allergies Results Component Value Reference Range Notes CBC Venipuncture (in house) Reviewed date:09/16/2024 11:19:26 PM Interpretation:Normal Performing Lab: Notes/Report: Normal wbc 6.3 3.5 - 10 lymph 29.7% 15 - 50 mid 7.7% 2 - 15 gran 62.6% 35 - 80 rbc 4.24 3.5 - 5.5 hgb 13.2 11.5 - 16.5 hct 37.7 35 - 55 mcv 88.8 75 - 100 mch 31.1 25 - 35 mchc 35.1 31 - 38 platlet 175 100 - 400 P-Comprehensive Metabolic Pa сергей (CMP) Reviewed date:09/16/2024 11:19:26 PM Interpretation:Cr 1.05, gfr 54 Performing Lab: Notes/Report: Test performed by [facility], [facility] , [address], [place] [address] Thong Levine MD, Deskidding Machine Operator CLIA: [id number] Sodium 140 135-145 mmol/L Potassium 4.4 3.5-5.3 mmol/L Chloride 104 97-108 mmol/L CO2 24 20-32 mmol/L Glucose 90 65-99 mg/dL BUN 20 8-23 mg/dL Creatinine 1.05 0.50-1.00 mg/dL Calcium 10.3 8.6-10.4 mg/dL eGFR by Creatinine 54 >59 mL/min/1.73m2 Protein 7.1 6.0-8.3 g/dL Albumin 4.5 3.5-5.3 g/dL Alkaline Phosphatase 72 35-121 IU/L ALT (SGPT) 18 <5-47 IU/L AST (SGOT) 37 <5-40 IU/L Bilirubin, Total 0.8 <0.2-1.2 mg/dL A/G Ratio 1.7 1.1-2.5 P-Lipid Panel Reviewed date:09/16/2024 11:19:26 PM Interpretation:Normal Performing Lab: Notes/Report: Test performed by [facility], [address] , [address] , [place] [address] Thong Levine MD, Deskidding Machine Operator CLIA: [id number] Cholesterol 153 <200 mg/dL Triglycerides 112 <150 mg/dL HDL Cholesterol 48 >39 mg/dL Cholesterol / HDL Ratio 3.19 0.00-4.44 Ratio Non-HDL Cholesterol 105 <130 mg/dL LDL Cholesterol (Calculation) 83 <130 mg/dL LDL Cholesterol Levels* Less than 100 mg/dL Optimal 100 to 129 mg/dL Near Optimal/ Above Optimal 130 to 159 mg/dL Borderline High 160 to 189 mg/dL High 190 mg/dL and above Very High * Categories as recommended by the 2004 ATPIII guidelines LDL/HDL Ratio 1.7 <3.3 Ratio LDL Cholesterol Patient History Test Date: 08/23/2022 LDL Results: 77 Units: mg/dL % Change: - Test Date: 09/27/2023 LDL Results: 72 Units: mg/dL % Change: -6% Test Date: 09/15/2024 LDL Results: 83 Units: mg/dL % Change: +15% P-Microalbumin/Creatinine, R andom Urine Sample Reviewed date:09/16/2024 11:19:26 PM Interpretation:Normal Performing Lab: Notes/Report: Test performed by [facility] [address] [place] [address] , [address], [place] [address] Thong Levine MD, Deskidding Machine Operator CLIA: [id number] Albumin/Creatinine Ratio, Urine 16 0-30 ug/m g Microalbumin, Urine, Random 2.1 Creatinine, Urine 128.8 Holter Monitor- 48 hour Reviewed date:09/29/2024 08:56:15 AM Interpretation: Performing Lab: Notes/Report: REASON FOR VISIT check up and Annual Wellness Visit, Needs labs & bone density screening Medications Medication SIG (Take, Route, Frequency, Duration) Notes Start Date End Date Status amLODIPine Besylate 5 MG TAKE 1 TABLET BY MOUTH EVERY DAY; Duration: 90 Active Ramipril 10 MG TAKE 1 CAPSULE BY MO UT TWICE DAILY; Duration: 90 Active Multivitamin 1 TAB ONCE A DAY Active Calcium + Vitamin D3 600-5 MG-MCG 1 tab(s) orally 2 times a day 08/05/2018 Active Prolia 60 mg/mL INJECT 1 ML SUBCUTANEOUSLY EVERY 6 MONTHS; Duration: 180 Active Atorvastatin Calcium 20 MG 1 tab(s) orally once a day (at bedtime); Duration: 30 day(s) Active Norvasc 5 MG 1 tab(s) orally once daily Active Altace 10 MG 1 cap(s) orally twic e a day Active Coreg 12.5 MG 1 tablet with food O rally Twice a day Active Aspir-Low 81 MG 1 tab(s) orally once daily Active Atorvastatin Calcium 20 MG TAKE 1 TABLET BY MOUTH DAILY AT BEDTIME; Duration: 90 Active Carvedilol 12.5 MG TAKE 1 TABLET BY LUIS A TH TWICE DAILY WITH FOOD; Duration: 90 Active Toprol XL 200 MG 1/2 tab(s) orally Tw o times a day; Duration: 90 days Not-Taking Vital Signs Blood pressure systolic 132 mm Hg 09/16/19 25 Blood pressure diastolic 80 mm Hg 025 Heart Rate 75 /min 09/15/2024 Height 60.50 in 09/15/2024 Weight 115.4 lbs 09/15/2024 BMI 22.16 kg/m2 09/15/2024 Encounters Encounter Location Date Provider Diagnosis [facility] [address] [facility] [address] [place] [address], [place] [id number] 09/15/2024 Carlo Huffman Adult general medica l examination Z00.00 ; Essential hypertension I10 ; Mixed hyperlipidemia E78.2 ; Dyslipidemia E78.5 ; Overactive bladder N32.81 ; Osteopenia M85.80 ; Irritable bowel syndrome K58.9 ; Tachycardia R00.0 and BMI 22.0-22.9, adult Z68.22 Assessments Encounter Date Diagnosis (ICD Code) Assessment Notes Treatment Notes Treatment Clinical Notes Section Notes 09/15/2024 Adult general medical examination (ICD-10 - Z00.00) Patient instructed to return to office Annually for Annual Wellness Visits to include annual screenings of Pain assessment, Functional Ability assessment, Cognitive Ability assessment, Fall Risk assessment, Depression screening and Bladder control screening. 09/15/2024 Essential hypertension (ICD-10 - I10) 09/15/2024 Mixed hyperlipidemia (ICD-10 - E78.2) 09/15/2024 Dyslipidemia (ICD-10 - E78.5) 09/15/2024 Overactive bladder (ICD-10 - N32.81) 09/15/2024 Osteopenia (ICD-10 - M85.80) 09/15/2024 Irritable bowel syndrome (ICD-10 - K58.9) 09/15/2024 Tachycardia (ICD-10 - R00.0) 09/15/2024 BMI 22.0-22.9, adult (ICD-10 - Z68.22) Plan Of Treatment Medication Medication Name Sig Start Date Stop Date Notes Atorvastatin Calcium 20 MG 1 tab(s) oral ly once a day (at bedtime); Duration: 30 day(s) Norvasc 5 MG 1 tab(s) orally once daily Altace 10 MG 1 cap(s) orally twice a day Coreg 12.5 MG 1 tablet with food O rally Twice a day Treatment Notes Assessment Notes Adult general medical examination Patien t instructed to return to office Annually for Annual Wellness Visits to include annual screenings of Pain assessment, Functional Ability assessment, Cognitive Ability assessment, Fall Risk assessment, Depression screening and Bladder control screening. Pending Test Test Name Order Date Bone density 09/15/2024 Next Appt Details Follow Up: 6 Months, Reason: Progress Notes * BLAINE SMITHDOB: [birth year] (78 yo F)Acc No.[id number]:09/15/2024 Annual Wellness Visit Patient: BLAINE CARRILLO Provider: Carlo Huffman M.D. :1945 A ge:78 Y S ex:Female Date:09/15/2024 Address:[facility] [address], [place], [id number] Subjective: * Chief Complaints: * 1 . check up and Annual Wellness Visit. 2. Needs labs & bone density screening. * HPI: H PI: Patient is here today for a scheduled check up a nd?a Medicare Annual Wellness Visit. Pt is fasting. C ardiology: She still notes random episodes of tachycardia on her smart watch which are mostly asymptomatic. Echocardiogram was performed after her last office visit but the Holter was not obtained. * ROS: D ERMATOLOGY: no R kailee. n o H lisa. G ASTROENTEROLOGY: no N ausea. n o V omiting. n o D iarrhea.? O PTHALMOLOGY: Negative for d enies vision issues. U ROLOGY: no D ifficulty urinating. n o B lood in urine. * Medical History: H ypertension, Osteopenia, Osteoarthritis, IBS-D - Dr. Akins, Hyperlipidiemia. * Surgical History: t otal hysterectomy 1996, C-scope/ singh/ Dr. Cain 2011, bilateral eyelid surgery-Dr Dowell 01/2019, C-scope/ Mable/ singh 08/2019. * Hospitalization/Major Diagno stic Procedure: [facility] 11/15, [place] [facility]-flu 05/18, [place] ER-fell and fractured right elbow 09/13/17. * [...] ML SUBCUTANEOUSLY EVERY 6 MONTHS , Taking amLODIPine Besylate 5 MG Tablet TAKE 1 TABLET BY MOUTH EVERY DAY , Taking Ramipril 10 MG Capsule TAKE 1 CAPSULE BY MOUTH TWICE DAILY , Taking Atorvastatin Calcium 20 MG Tablet TAKE 1 TABLET BY MOUTH DAILY AT BEDTIME , Taking Carvedilol 12.5 MG Tablet TAKE 1 TABLET BY MOUTH TWICE DAILY WITH FOOD , Not-Taking Toprol XL 200 MG Tablet Extended Release 24 Hour 1/2 tab(s) orally Two times a day , Medication List reviewed and reconciled with the patient * Allergies: N .K.D.A. Objective: * Vitals: W t: 115.4, Temp: 97.9, BP: 132/80, HR: 75, Nurse: ANJEL, Ht: 60.50, BMI:22.16. * Examination: C ardiology: General Appearance: p leasant, NAD. H EENT: u nremarkable. C arotid upstroke: n ormal, no bruits. H eart sounds: R RR, normal S1, S2.?Murmur, click , gallop: n one. L ungs: c lear, no rales or wheezes. E xtremities: n o leg edema. * Physical Examination: G ENERAL: Pain Assessment: P ain level: 0, on a scale of 0-10 (with 10 being extreme pain). F unctional Status Assessment: P atient response to question of how often physical health interferes with daily activities: Almost never. Able to perform ADLs-including meal preparation, grocery shopping, housework, laundry, taking medications or handling finances. Cognitive Status: alert and oriented. Ambulation Status: Fully ambulatory. F all Risk Assessment: I ndependant in ambulation, adequate lighting in home. Patient has NOT fallen or had trouble walking within the past 12 months. D epression Screening: D enies depressed mood or anxiety. Describes emotional health as: positive. B ladder Control Screening: s mall problems. Assessment: * Assessment: 1. A dult general medical examination - Z00.00 (Primary) 2 . E ssential hypertension - I10 3 . M ixed hyperlipidemia - E78.2 4 . D yslipidemia - E78.5 5 . O veractive bladder - N32.81 6 . O steopenia - M85.80 7 . I rritable bowel syndrome - K58.9 8 . T achycardia - R00.0 9 . B AK 22.0-22.9, adult - Z68.22 Plan: * Treatment: 2. E ssential hypertension Refill Norvasc Tablet, 5 MG, 1 tab(s), orally, once daily, 90, Refills 1; R efill Altace Capsule, 10 MG, 1 cap(s), orally, twice a day, 180, Refills 1; R efill Coreg Tablet, 12.5 MG, 1 tablet with food, Orally, Twice a day, 180, Refills 1. L AB: P-Comprehensive Metabolic Panel (CMP) (Collection Date & Time - 09/15/2024 10:04 AM) C r 1.05, gfr 54 Value Reference Range A /G Ratio 1.7 1.1-2.5 - * A lbumin 4.5 3.5-5.3 - g/dL * A lkaline Phosphatase 72 35-121 - IU/L * A LT (SGPT) 18 <5-47 - IU/L * A ST (SGOT) 37 <5-40 - IU/L * B ilirubin, Total 0.8 <0.2-1.2 - mg/dL * B UN 20 8-23 - mg/dL * C alcium 10.3 8.6-10.4 - mg/dL * C hloride 104 97-108 - mmol/L * C O2 24 20-32 - mmol/L * C reatinine 1.05 H 0.50-1.00 - mg/dL * G lucose 90 65-99 - mg/dL * P otassium 4.4 3.5-5.3 - mmol/L * S odium 140 135-145 - mmol/L * P rotein 7.1 6.0-8.3 - g/dL * e GFR by Creatinine 54 L >59 - mL/min/1.73m2 * Carlo Huffman 09/16/2024 11:19:09 PM EDT > See phone encounter ?LAB: P-Microalbumin/Creatinine, Random Urine Sample (Collection Date & Time - 09/15/2024 10:04 AM)?Normal* Value Reference Range A lbumin/Creatinine Ratio, Urine 16 0-30 - ug /mg * C reatinine, Urine 128.8 - mg/dL * M icroalbumin, Urine, Random 2.1 - mg/dL * Carlo Huffman 09/16/2024 11:19:09 PM EDT > See phone encounter ?LAB: CBC Venipuncture (in house) (Collection Date & Time - 09/15/2024)? Normal* Value Reference Range w bc 6.3 3.5 - 10 * l ymph 29.7% 15 - 50 * m id 7.7% 2 - 15 * g ran 62.6% 35 - 80 * r bc 4.24 3.5 - 5.5 * h gb 13.2 11.5 - 16.5 * h ct 37.7 35 - 55 * m cv 88.8 75 - 100 * m ch 31.1 25 - 35 * m chc 35.1 31 - 38 * p latlet 175 100 - 400 * Dafne Christina L 09/15/2024 11 :56:34 AM EDT > Carlo Huffman 09/16/2024 11:19:09 PM EDT > See phone encounter 3.?Dyslipidemia? Refill Atorvastatin Calcium Tablet, 20 MG, 1 tab(s), orally, once a day (at bedtime), 30 day(s), 90, Refills 1.?LAB: P-Lipid Panel (Collection Date & Time - 09/15/2024 10:04 AM)?Normal* Value Reference Range C holesterol / HDL Ratio 3.19 0.00-4.44 - Ratio * C holesterol 153 <200 - mg/dL * H DL Cholesterol 48 >39 - mg/dL * L DL Cholesterol (Calculation) 83 <130 - mg/d L * L DL/HDL Ratio 1.7 <3.3 - Ratio * N on-HDL Cholesterol 105 <130 - mg/dL * T riglycerides 112 <150 - mg/dL * Carlo Huffman 09/16/2024 11:19:09 PM EDT > See phone encounter 4.?Osteopenia?Imaging: Bone density* Ibeth Heaton 09/16/2024 08:4 3:37 AM EDT > faxed to [facility] Scheduling 5.?Tachycardia?Imaging: Holter Monitor- 48 hour (Performed Date - 09/15/2024)* Ibeth Heaton 09/15/2024 10:5 7:57 AM EDT > faxed to [facility] Outpatient RegistrationNorfCarlo mcnamara 09/29/2024 08:56:00 AM EDT > See phone encounter * Procedure Codes: G 0439 ANNUAL WELLNESS VST; PPS SUBSQT VST, G2211 Complex e/m visit add on, 1090F PRES/ABSN URINE INCON ASSESS, 3288F FALL RISK ASSESSMENT DOCD, 1170F FXNL STATUS ASSESSED, 1126F AMNT PAIN NOTED NONE PRSNT, 1159F MED LIST DOCD IN RCRD, 1003F LEVEL OF ACTIVITY ASSESS, 1036F TOBACCO NON-USER, 3017F COLORECTAL CA SCREEN DOC REV, G9899 [place], [id number] CBC WITH AUTO DIFF, G8510 NEG SCR Depression PT NOT ELIG F/U/PLN DOC, G8950 PREHTN/HTN BP DOC INDCD F/U DOC, G8752 MOST RECENT SYSTOLIC BP < 140MM HG, G8754 MOST RECENT DIASTOLIC BP < 90MM HG, G8420 BMI<30 AND >=22 CALC & DOCU, G8399 PT W/DXA DOCUMENT OR ORDER * Preventive Medicine: Counseling: E motional health: D iscussed ways to improve socialization. B ladder control: M ethods of controlling or managing leakage of urine discussed. E xercise: Patient advised to start, increase or maintain level of exercise/physical activity. I njury prevention: F all prevention discussed. Discussed need for cane/walker. Potential trip hazards discussed. Immunizations: T etanus u p to date. P neumococcal u p to date. I nfluenza u p to date. Screening / Special Tests: M ammogram R ecent history: 03/12/2024, negative. C olonoscopy R ecent history: 09/07/2019, Dr. Akins, normal with hemorrhoids, no further f/u necessary. B one mineral Density R ecent history: 09/05/2022, osteopenia, recommended. * Follow Up: 6 Months * Images: Billing Information: * Visit Code: 01787 Office Visit, Est Pt., Level 3. Modifiers: 25 * Procedure Codes: G0439 ANNUAL WELLNESS VST; PPS SUBSQT VST. G2211 Complex e/m visit add on. 1090F PRES/ABSN URINE INCON ASSESS. 3288F FALL RISK ASSESSMENT DOCD. 1170F FXNL STATUS ASSESSED. 1126F AMNT PAIN NOTED NONE PRSNT. 1159F MED LIST DOCD IN RCRD. 1003F LEVEL OF ACTIVITY ASSESS. 1036F TOBACCO NON-USER. 3017F COLORECTAL CA SCREEN DOC REV. G9899 [place]. [id number] CBC WITH AUTO DIFF. G8510 NEG SCR Depression PT NOT ELIG F/U/PLN DOC. G8950 PREHTN/HTN BP DOC INDCD F/U DOC. G8752 MOST RECENT SYSTOLIC BP < 140MM HG. G8754 MOST RECENT DIASTOLIC BP < 90MM HG. G8420 BMI<30 AND >=22 CALC & DOCU. G8399 PT W/DXA DOCUMENT OR ORDER. * Electronic signature of Carlo Huffman MD on 10/12/2024 at 09:10 AM EDT Sign off status: Pending * Provider: Carlo Huffman M.D. Date: 0 09/15/2024 Generated for Chris judge/Chente/Lucio on: 0 10/12/2024 09:10 AM EDT History and Physical Notes * HPI (History of Present Illness) Category Sub-Category Detail Notes Category Not es Cardiology She still notes random episodes of tachycardia on her smart watch which are mostly asymptomatic. Echocardiogram was performed after her last office visit but the Holter was not obtained. HPI Patient is here today for a scheduled check up and a Medicare Annual Wellness Visit. Pt is fasting Physical Examination Category Sub-Category Detail Notes Section Note s GENERAL Pain Assessment: Pain level: 0, on a scale of 0-10 (with 10 being extreme pain) Functional Status Assessment: Patient re sponse to question of how often physical health interferes with daily activities: Almost never. Able to perform ADLs-including meal preparation, grocery shopping, housework, laundry, taking medications or handling finances.Cognitive Status: alert and oriented.Ambulation Status: Fully ambulatory Fall Risk Assessment: Independant in amb ulation, adequate lighting in home. Patient has NOT fallen or had trouble walking within the past 12 months Depression Screening: Denies depressed m ood or anxiety. Describes emotional health as: positive Bladder Control Screening: small problem s Examination Category Sub-Category Detail Notes Category Not es Cardiology Lungs: clear, no rales or wheezes HEENT: unremarkable Heart sounds: RRR, normal S1, S2 Carotid upstroke: normal, no bruits Extremities: no leg edema Murmur, click , gallop: none General Appearance: pleasant, NAD
--- NOTE | 2024-10-12 09:09 | XR_ITS ---
FINAL REPORT CLINICAL HISTORY: SCREENING COMPARISON: None FINDINGS: Using L1-4, the bone mineral density of the spine is 0.953 g/cm2, corresponding to T-score of -0.9, within normal limits. Using the left hip, the bone mineral density of the femoral neck is 0.644 g/cm2, corresponding to a T-score of -1.8, compatible with osteopenia. Using the right hip, the bone mineral density of the femoral neck is 0.728 g/cm2, corresponding to a T-score of -1.1, compatible with osteopenia. FRAX not reported because the patient is being treated for osteoporosis. NOTE: T-score: Standard deviation compared with peak bone mass of young adult mean. *Following the recommendations of the International Society of Bone densitometry, classification of hip BMD is based on the lower of two T-scores; total hip or femoral neck. IMPRESSION: Normal bone mineral density of the lumbar spine, with diminished bone mineral density in the bilateral hips consistent with osteopenia. Reviewed, Interpreted and Dictated by Fabiano Brown MD Transcribed by Coreen Benito Authenticated and [facility]
--- OUTSIDE RECORDS SUMMARY | 2024-10-12 09:11 | XMS_ITS | Patient Health Record ---
Author Organization [facility] Address [address] [place] [phone] Allergies No Known Allergies Reason For Referral [...] Date Coverage End Date [employer] [address] [address] [place] [address] [phone] [id number] BLAINE ELLISON Self - patient is the insured Medical (General) History Medical History History ICD Code Hypertension High cholesterol Osteopenia Surgical History Surgery Date(Month/Year) Hysterectomy
== END 2024-10-12 23:59 | disposition home or self-care (01) ==
LOC: RAD 09:07
PROVIDERS: PCP Family Medicine; Visit Provider Family Medicine
DX: Z13.820 Encounter for screening for osteoporosis (principal); M85.88 Other specified disorders of bone density and structure, other site
CPT/HCPCS: 77080